=== PATIENT | female | born 1965 | race Hispanic/Latino ===

== ENCOUNTER 2018-08-06 14:48 | Emergency (ER) | payer MEDICARE ==
[~2018-08-06] VITALS: Ht 162.6 cm; Wt 131.1 kg
[2018-08-06] MEDS ORDERED: ALBUTEROL/IPRATROPIUM 3 ML NEB NEB ONE (15:15)
--- OUTSIDE RECORDS SUMMARY | 2018-08-06 16:48 | XMS REPORT ---
[facility] [place] Address Unknown Phone Unavailable Care Team Providers Care Conductor Pullman Name Role Phone Unavailable Unavailable Payers Payer Name Policy Type Policy Number Effective Date Expiration Date Problems This patient has no known problems. Allergies, Adverse Reactions, Alerts Allergy Name Allergy Type Status Severity Reaction(s) Onset Date Inactive Date Treating Clinician Comments No Known Allergies DA Active U 2018-04-29 00:00:00 No Known Allergies DA Active U 2016-11-16 00:00:00 Medications This patient has no known medications. Encounters Start Date/Time End Date/Time Encounter Type Admission Type Attending Clinicians Care Facility Care Department Encounter ID 2018-03-18 00:00:00 2018-03-18 00:00:00 Outpatient [facility] [id number] 2018-01-18 00:00:00 2018-01-18 00:00:00 Outpatient [facility] [id number] 2018-01-11 00:00:00 2018-01-11 00:00:00 Outpatient [facility] [id number] 2017-11-25 00:00:00 2017-11-25 00:00:00 Outpatient [facility] [id number] 2017-11-03 00:00:00 2017-11-03 00:00:00 Outpatient [facility] [id number] 2017-07-17 12:59:35 2017-07-17 12:59:35 Outpatient [facility] [id number] 2017-07-10 00:00:00 2017-07-10 00:00:00 Outpatient [facility] [id number] 2017-07-09 00:00:00 2017-07-09 00:00:00 Outpatient [facility] [id number] 2017-07-03 00:00:00 2017-07-03 00:00:00 Outpatient [facility] [id number] 00:00:00 2017 00:00:00 Outpatient [facility] [id number] 2017-06-05 00:00:00 2017-06-05 00:00:00 Outpatient [facility] [id number] 2017-06-04 00:00:00 2017-06-04 00:00:00 Outpatient [facility] [id number] 2017-06-04 00:00:00 2017-06-04 00:00:00 Outpatient [facility] [id number] 2017-06-02 00:00:00 2017-06-02 00:00:00 Outpatient [facility] [id number] 2017-05-25 15:50:28 2017-05-25 15:50:28 Outpatient [facility] [id number] 2017-05-22 13:52:17 2017-05-22 13:52:17 Outpatient [facility] [id number] 2017-05-22 12:45:36 2017-05-22 12:45:36 Outpatient [facility] [id number] 2017-05-14 00:00:00 2017-05-14 00:00:00 Outpatient [facility] [id number] 2017-05-12 07:51:25 2017-05-12 07:51:25 Outpatient [facility] [id number] 2017-04-23 12:56:17 2017-04-23 12:56:17 Outpatient [facility] [id number] 2017-04-16 00:00:00 2017-04-16 00:00:00 Outpatient [facility] [id number] 2017-04-08 00:00:00 2017-04-08 00:00:00 Outpatient [facility] [id number] 2017-04-06 00:00:00 2017-04-06 00:00:00 Outpatient [facility] [id number] 2017-03-25 00:00:00 2017-03-25 00:00:00 Outpatient [facility] [id number] 2017-03-25 00:00:00 2017-03-25 00:00:00 Outpatient [facility] [id number] 2017-03-23 00:00:00 2017-03-23 00:00:00 Outpatient [facility] [id number] 2017-03-23 00:00:00 2017-03-23 00:00:00 Outpatient [facility] [id number] 2017-03-23 00:00:00 2017-03-23 00:00:00 Outpatient [facility] [id number] 2017-03-09 00:00:00 2017-03-09 00:00:00 Outpatient [facility] [id number] 2017-02-27 10:26:34 2017-02-27 10:26:34 Outpatient [facility] [id number] 2017-02-20 08:55:17 2017-02-20 08:55:17 Outpatient [facility] [id number] 2017-02-19 00:00:00 2017-02-19 00:00:00 Outpatient [facility] [id number] 2017-02-10 00:00:00 2017-02-10 00:00:00 Outpatient [facility] [id number] 2017-02-06 00:00:00 2017-02-06 00:00:00 Outpatient [facility] [id number] 2017-01-30 13:48:00 2017-01-30 13:48:00 Outpatient [facility] [id number] 2017-01-26 15:20:54 2017-01-26 15:20:54 Outpatient [facility] [id number] 2017-01-26 10:01:38 2017-01-26 10:01:38 Outpatient [facility] [id number] 2017-01-26 08:42:15 2017-01-26 08:42:15 Outpatient [facility] [id number] 2016-12-10 13:05:35 2016-12-10 13:05:35 Emergency [facility] [id number]
--- NOTE | 2018-08-06 16:58 | Diagnostic Imaging Report ---
PROCEDURE:CXR 2 VIEW - HOPD COMPARISON:None. INDICATIONS:Cough FINDINGS:Heart is not enlarged. There is mild pulmonary vascular congestion. Faint opacity with tenting of the left hemidiaphragm likely represents atelectasis versus evolving infiltrate. Osseous structures appear unremarkable. CONCLUSION:Mild pulmonary vascular congestion with opacity in the left lung base. Mike Gage D.O. Dictated by: Mike Gage D.O. on 08/06/2018 at 17:11 Electronically approved by: Mike Gage D.O. on 08/06/2018 at 17:11
[2018-08-06] MEDS ORDERED: CEFTRIAXONE SOD 2 GM/NS 100 ML 100 ML IV ONE (17:30)
[2018-08-06] MEDS ORDERED: ALBUTEROL SULF 0.083% NEB SOLN 3 ML NEB NEB STA (17:46)
[2018-08-06] MEDS ORDERED: POTASSIUM CHLORIDE 20 MEQ TAB CR PO STA (18:52)
--- NOTE | 2018-08-06 19:18 | NUR ---
PT STRONGLY ENCOURAGED TO SEEK 911 CARE IF WORSE AND NOT BETTER AT ANYTIME. PT STATES UNDERSTANDING.
== END 2018-08-06 19:19 | disposition home or self-care (01) ==
LOC: FSED 14:48
DX: R05 Cough (principal); R06.00 Dyspnea, unspecified; R07.89 Other chest pain; J15.9 Unspecified bacterial pneumonia; I10 Essential (primary) hypertension; E11.9 Type 2 diabetes mellitus without complications
CPT/HCPCS: 71046; 80053; 82553; 83880; 84484; 85025; 93005; 99284; J0696